=== PATIENT | male | born 1950 | race Caucasian/White ===

== ENCOUNTER → 2019-04-06 | Outpatient (CLI) | payer MEDICARE, BC ==
[~2019-04-06] MED LIST: BENICAR 20MG TA20 MG PO; CYMBALTA; FERROUS SU325 MG/TAB PO; FOLIC ACID; PREDNISONE 2.52.5 MG PO; VITAMIN C500 MG PO; [UNRECOGNIZED DRUG - OTHER]
== END | disposition home or self-care (01) ==
LOC: COL.VAS 03-30 09:45
DX: I08.3 Combined rheumatic disorders of mitral, aortic and tricuspid valves (principal)